=== PATIENT | female | born 1950 | race African-American/Black ===

== ENCOUNTER 2019-02-22 17:59 | Emergency (ER) | payer OTHER ==
[~2019-02-22] VITALS: Ht 162.6 cm; Wt 63.5 kg
[2019-02-22] MEDS ORDERED: LIPITOR40 MG PO (19:24)
[2019-02-22] MEDS ORDERED: LISINOPRIL-HCT1 EAC2 PO (19:25)
[2019-02-22 19:51] LABS: ABSOLUTE NEUTROPHILS 7.9 thou/uL (1.4-8.2); BASOPHILS 0.3 % (0.0-2.0); EOSINOPHILS 0.6 % (0.0-3.0); HEMATOCRIT 32.3 % (37.0-47.0); HEMOGLOBIN 10.5 gm/dL (12.0-15.0); LYMPHOCYTES 10.7 % (24.0-44.0); MCH 29.2 pg (26.0-34.0); MCHC 32.6 g/dL (28.0-37.0); MCV 89.4 fL (80.0-100.0); MONOCYTES 4.5 % (1.0-8.0); PLATELET COUNT 259 thou/uL (150-400); POLYS 83.9 % (36.0-66.0); RBC 3.62 mil/uL (4.20-5.00); RDW 15.7 % (10.5-14.5); WBC 9.5 thou/uL (4.0-11.0)
[2019-02-22 20:27] LABS: ANION GAP 14 mmol/L (7-16); BUN 29 mg/dL (7-18); CALCIUM 9.5 mg/dL (8.5-10.1); CHLORIDE 107 mmol/L (98-107); CO2 20 mmol/L (21-32); CREATININE 1.2 mg/dL (0.6-1.0); GLUCOSE 88 mg/dL (74-106); POTASSIUM 3.8 mmol/L (3.5-5.1); SODIUM 141 mmol/L (136-145)
[2019-02-22 20:36] LABS: MAGNESIUM 1.9 mg/dL (1.8-2.4); TROPONIN-I <0.06 ng/mL (<0.06)
[2019-02-22 21:20] VITALS: BP 146/51
--- NOTE | 2019-02-24 09:08 | EKG ---
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1950 Requested By: Bethel Barnes Order Number: [id number] MD: Tito Barrera Measurements Intervals [place] Rate: 63 P: 0 [place]: 195 QRS: -6 QRSD: 120 T: 59 QT: 427 QTc: 438 Interpretive Statements Sinus rhythm Nonspecific intraventricular conduction delay Anterior infarct, old No previous ECG available for comparison Electronically Signed On 02-24-2019 9:07:53 CDT by Tito Barrera [email or web address] ��������������������������������������������� <ELECTRONICALLY SIGNED> ���������������������������������������� By: Tito Barrrea MD ��������������������������������������������� 02/24/19 09 1806 1806 Tito Barrera MD /DARRIN
== END 2019-02-22 21:25 | disposition home or self-care (01) ==
LOC: ER 17:59
PROVIDERS: Emergency Medicine
DX: R53.1 Weakness (principal); R55 Syncope and collapse; F17.210 Nicotine dependence, cigarettes, uncomplicated; H54.3 Unqualified visual loss, both eyes; Z86.73 Personal history of transient ischemic attack (TIA), and cerebral infarction without residual deficits

== ENCOUNTER 2020-11-13 15:55 | Emergency (ER) | payer OTHER ==
[~2020-11-13] VITALS: Ht 162.6 cm; Wt 64.0 kg
[~2020-11-13 15:55] MED LIST: LIPITOR40 MG PO; LISINOPRIL-HCT1 EAC2 PO
[2020-11-13 16:21] LABS: ABSOLUTE NEUTROPHILS 5.6 thou/uL (1.4-8.2); BASOPHILS 0.6 % (0.0-2.0); EOSINOPHILS 5.1 % (0.0-3.0); HEMATOCRIT 33.4 % (37.0-47.0); HEMOGLOBIN 10.7 gm/dL (12.0-15.0); MCH 28.5 pg (26.0-34.0); MCHC 32.1 g/dL (28.0-37.0); MCV 88.8 fL (80.0-100.0); MONOCYTES 7.1 % (1.0-8.0); PLATELET COUNT 244 thou/uL (150-400); POLYS 64.2 % (36.0-66.0); RBC 3.76 mil/uL (4.20-5.00); RDW 14.6 % (10.5-14.5); WBC 8.8 thou/uL (4.0-11.0)
[2020-11-13 16:27] LABS: ANION GAP 12 mmol/L (7-16); BUN 41 mg/dL (7-18); CALCIUM 9.1 mg/dL (8.5-10.1); CHLORIDE 108 mmol/L (98-107); CO2 23 mmol/L (21-32); CREATININE 1.5 mg/dL (0.6-1.0); GLUCOSE 112 mg/dL (74-106); POTASSIUM 4.1 mmol/L (3.5-5.1); SODIUM 143 mmol/L (136-145)
[2020-11-13 16:37] LABS: ALBUMIN 3.3 g/dL (3.4-5.0); SGOT 17 U/L (15-37); SGPT 28 U/L (14-59); TOTAL BILIRUBIN 0.3 mg/dL (0.2-1.0); TOTAL PROTEIN 7.3 g/dL (6.4-8.2); TROPONIN-I <0.06 ng/mL (<0.06)
[2020-11-13 18:05] LABS: URINE BILIRUBIN NEGATIVE (Negative); URINE BLOOD TRACE (Negative); URINE CLARITY SL CLOUDY; URINE COLOR YELLOW; URINE GLUCOSE-RANDOM* NEGATIVE (Negative); URINE KETONES NEGATIVE (Negative); URINE PROTEIN (DIPSTICK) NEGATIVE (Negative); URINE SPECIFIC GRAVITY 1.025 (1.005-1.035); URINE UROBILINOGEN 0.2 E.U./dl (0.2-1.0)
[2020-11-13 18:24] LABS: URINE LEUKOCYTES-REFLEX 1+ (Negative); URINE NITRITE-REFLEX POSITIVE (Negative)
[2020-11-13] MEDS ORDERED: CEPHALEXIN500 MG PO ×2 (18:26)
[2020-11-13 18:34] LABS: SQUAMOUS >10 Many /LPF (0-3)
[2020-11-13 18:35] LABS: BACTERIA-REFLEX >30 Many /HPF (None Seen); CASTS None Seen /LPF (None Seen); CRYSTALS None Seen /LPF (None Seen); URINE RBC 1-2 Rare /HPF (NONE SEEN); URINE WBC-REFLEX 6-15 Few /HPF (0-5)
[2020-11-13 19:39] VITALS: BP 145/55
--- NOTE | 2020-11-14 07:06 | EKG ---
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 : 1950 Requested By: Marcia Cantu Order Number: [id number] MD: Howard Benz Measurements Intervals [place] Rate: 60 P: -24 PA: 183 QRS: 9 QRSD: 94 T: 58 QT: 398 QTc: 398 Interpretive Statements Sinus rhythm Low voltage, precordial leads Anteroseptal infarct, old Compared to ECG 02/22/2019 18:06:25 Low QRS voltage now present Intraventricular conduction delay no longer present Myocardial infarct finding still present Electronically Signed On 11-14-2020 7:06:00 CDT by Howard Benz [email or web address] <ELECTRONICALLY SIGNED> By: Howard Benz MD, [facility] 11/14/20 0706 15 15 Howard Benz MD, [facility] /EPI
== END 2020-11-13 19:51 | disposition home or self-care (01) ==
LOC: ER 15:55
PROVIDERS: Physician Assistant
DX: E86.0 Dehydration (principal); N39.0 Urinary tract infection, site not specified; R42 Dizziness and giddiness; F17.210 Nicotine dependence, cigarettes, uncomplicated; Z79.899 Other long term (current) drug therapy

== ENCOUNTER 2020-12-04 22:47 | Emergency (ER) | payer OTHER ==
[~2020-12-04] VITALS: Ht 162.6 cm; Wt 65.8 kg
[~2020-12-04 22:47] MED LIST changes: +CEPHALEXIN500 MG PO
[2020-12-04 23:16] LABS: ABSOLUTE NEUTROPHILS 6.1 thou/uL (1.4-8.2); BASOPHILS 0.7 % (0.0-2.0); EOSINOPHILS 4.1 % (0.0-3.0); HEMATOCRIT 33.5 % (37.0-47.0); HEMOGLOBIN 10.7 gm/dL (12.0-15.0); LYMPHOCYTES 22.4 % (24.0-44.0); MCH 28.6 pg (26.0-34.0); MCHC 31.9 g/dL (28.0-37.0); MCV 89.6 fL (80.0-100.0); MONOCYTES 6.1 % (1.0-8.0); PLATELET COUNT 265 thou/uL (150-400); POLYS 66.7 % (36.0-66.0); RBC 3.74 mil/uL (4.20-5.00); RDW 15.2 % (10.5-14.5); WBC 9.1 thou/uL (4.0-11.0)
[2020-12-04 23:22] LABS: ANION GAP 11 mmol/L (7-16); BUN 43 mg/dL (7-18); CALCIUM 9.1 mg/dL (8.5-10.1); CHLORIDE 106 mmol/L (98-107); CO2 23 mmol/L (21-32); CREATININE 1.7 mg/dL (0.6-1.0); GLUCOSE 162 mg/dL (74-106); POTASSIUM 4.1 mmol/L (3.5-5.1); SODIUM 140 mmol/L (136-145)
[2020-12-04 23:32] LABS: ALBUMIN 3.3 g/dL (3.4-5.0); SGOT 16 U/L (15-37); SGPT 27 U/L (14-59); TOTAL BILIRUBIN 0.4 mg/dL (0.2-1.0); TOTAL PROTEIN 7.5 g/dL (6.4-8.2); TROPONIN-I <0.06 ng/mL (<0.06)
[2020-12-05 02:46] VITALS: BP 121/74
--- NOTE | 2020-12-05 07:24 | EKG ---
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
== END 2020-12-05 02:48 | disposition home or self-care (01) ==
LOC: ER 22:47
PROVIDERS: Emergency Medicine
DX: S90.812A Abrasion, left foot, initial encounter (principal); R55 Syncope and collapse; F17.210 Nicotine dependence, cigarettes, uncomplicated; I10 Essential (primary) hypertension; E78.00 Pure hypercholesterolemia, unspecified; Z79.899 Other long term (current) drug therapy; W18.30XA Fall on same level, unspecified, initial encounter; Y93.01 Activity, walking, marching and hiking; Y92.091 Bathroom in other non-institutional residence as the place of occurrence of the external cause; Y99.9 Unspecified external cause status

== ENCOUNTER 2021-02-03 15:15 | Emergency (ER) | payer OTHER ==
[~2021-02-03] VITALS: Ht 162.6 cm; Wt 65.8 kg
[2021-02-03 15:39] LABS: ABSOLUTE NEUTROPHILS 6.6 thou/uL (1.4-8.2); BASOPHILS 0.4 % (0.0-2.0); EOSINOPHILS 1.3 % (0.0-3.0); HEMATOCRIT 33.5 % (37.0-47.0); HEMOGLOBIN 10.9 gm/dL (12.0-15.0); LYMPHOCYTES 17.8 % (24.0-44.0); MCHC 32.4 g/dL (28.0-37.0); MCV 89.2 fL (80.0-100.0); MONOCYTES 5.5 % (1.0-8.0); PLATELET COUNT 248 thou/uL (150-400); RBC 3.76 mil/uL (4.20-5.00); RDW 15.1 % (10.5-14.5); WBC 8.8 thou/uL (4.0-11.0)
[2021-02-03 15:50] LABS: CALCIUM 9.2 mg/dL (8.5-10.1); CREATININE 1.4 mg/dL (0.6-1.0); POTASSIUM 3.3 mmol/L (3.5-5.1)
[2021-02-03 15:53] LABS: ALBUMIN 3.5 g/dL (3.4-5.0); TOTAL BILIRUBIN 0.3 mg/dL (0.2-1.0); TOTAL PROTEIN 7.7 g/dL (6.4-8.2)
[2021-02-03 19:11] VITALS: BP 166/66
== END 2021-02-03 19:12 | disposition home or self-care (01) ==
LOC: ER 15:15
PROVIDERS: Emergency Medicine
DX: R19.7 Diarrhea, unspecified (principal); I10 Essential (primary) hypertension; E78.00 Pure hypercholesterolemia, unspecified; F17.210 Nicotine dependence, cigarettes, uncomplicated; Z79.899 Other long term (current) drug therapy

== ENCOUNTER 2021-03-19 12:54 | Emergency (ER) | payer OTHER ==
[~2021-03-19] VITALS: Ht 162.6 cm; Wt 65.8 kg
[2021-03-19 13:12] LABS: ABSOLUTE NEUTROPHILS 5.7 thou/uL (1.4-8.2); BASOPHILS 0.8 % (0.0-2.0); EOSINOPHILS 1.2 % (0.0-3.0); HEMATOCRIT 33.1 % (37.0-47.0); LYMPHOCYTES 21.3 % (24.0-44.0); MCH 29.6 pg (26.0-34.0); MCHC 33.4 g/dL (28.0-37.0); MCV 88.6 fL (80.0-100.0); MONOCYTES 6.2 % (1.0-8.0); PLATELET COUNT 262 thou/uL (150-400); POLYS 70.5 % (36.0-66.0); RBC 3.74 mil/uL (4.20-5.00); RDW 14.9 % (10.5-14.5); WBC 8.1 thou/uL (4.0-11.0)
[2021-03-19 13:35] LABS: CALCIUM 9.3 mg/dL (8.5-10.1); CREATININE 1.6 mg/dL (0.6-1.0); POTASSIUM 3.9 mmol/L (3.5-5.1)
[2021-03-19 13:39] LABS: ALBUMIN 3.6 g/dL (3.4-5.0); DIRECT BILIRUBIN 0.1 mg/dL (<0.1-0.2); TOTAL BILIRUBIN 0.3 mg/dL (0.2-1.0); TOTAL PROTEIN 7.8 g/dL (6.4-8.2)
[2021-03-19 15:05] LABS: URINE BILIRUBIN NEGATIVE (Negative); URINE BLOOD NEGATIVE (Negative); URINE CLARITY HAZY; URINE COLOR YELLOW; URINE GLUCOSE-RANDOM* NEGATIVE (Negative); URINE KETONES NEGATIVE (Negative); URINE LEUKOCYTES-REFLEX 2+ (Negative); URINE NITRITE-REFLEX POSITIVE (Negative); URINE PROTEIN (DIPSTICK) NEGATIVE (Negative); URINE UROBILINOGEN 0.2 E.U./dl (0.2-1.0)
[2021-03-19] MEDS ORDERED: CEPHALEXIN500 MG PO (15:13)
[2021-03-19 15:16] LABS: CASTS None Seen /LPF (None Seen); SQUAMOUS >10 Many /LPF (0-3)
[2021-03-19 15:17] LABS: CRYSTALS None Seen /LPF (None Seen); URINE RBC None Seen /HPF (NONE SEEN); URINE WBC-REFLEX 6-15 Few /HPF (0-5)
[2021-03-19 16:20] VITALS: BP 151/64
--- NOTE | 2021-03-20 16:28 | EKG ---
[place] [address] [place] [address] ELECTROCARDIOGRAM REPORT Name: JEZ GUILLEN Room #: DEP [facility]ioneAntione[facility] [id number] Admission: 03/19/21 Attend Phys: Discharge: 03/19/21 Date of : 50 Report #: [id number] 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 : 1950 Requested By: Brenden Glaser Order Number: [id number] MD: Howard Benz Measurements Intervals [place] Rate: 65 P: -4 [place]: 174 QRS: -6 QRSD: 109 T: 36 QT: 420 QTc: 437 Interpretive Statements Sinus rhythm Low voltage, precordial leads Anteroseptal infarct, old Compared to ECG 12/04/2020 23:15:48 Low QRS voltage now present Myocardial infarct finding still present Electronically Signed On 03-20-2021 16:28:10 CDT by Howard Benz [email or web address] <ELECTRONICALLY SIGNED> By: Howard Benz MD, [facility] 03/20/21 1628 1321 1321 Howard Benz MD, FACC /EPI
== END 2021-03-19 16:30 | disposition home or self-care (01) ==
LOC: ER 12:54
PROVIDERS: Nurse Practitioner
DX: N39.0 Urinary tract infection, site not specified (principal); I10 Essential (primary) hypertension; Z79.899 Other long term (current) drug therapy

== ENCOUNTER 2021-08-04 15:43 | Emergency (ER) | payer OTHER ==
[~2021-08-04] VITALS: Ht 162.6 cm; Wt 52.2 kg
[2021-08-04 16:09] LABS: ABSOLUTE NEUTROPHILS 6.7 thou/uL (1.4-8.2); BASOPHILS 0.4 % (0.0-2.0); EOSINOPHILS 0.8 % (0.0-3.0); HEMATOCRIT 37.4 % (37.0-47.0); HEMOGLOBIN 11.6 gm/dL (12.0-15.0); LYMPHOCYTES 13.8 % (24.0-44.0); MCH 28.7 pg (26.0-34.0); MCHC 31.2 g/dL (28.0-37.0); MCV 92.2 fL (80.0-100.0); PLATELET COUNT 238 thou/uL (150-400); RBC 4.06 mil/uL (4.20-5.00); RDW 16.6 % (10.5-14.5); WBC 8.4 thou/uL (4.0-11.0)
[2021-08-04 16:19] LABS: CALCIUM 7.1 mg/dL (8.5-10.1); CREATININE 1.1 mg/dL (0.6-1.0); POTASSIUM 3.1 mmol/L (3.5-5.1)
[2021-08-04 16:32] LABS: ALBUMIN 2.6 g/dL (3.4-5.0); TOTAL BILIRUBIN 0.2 mg/dL (0.2-1.0); TOTAL PROTEIN 5.1 g/dL (6.4-8.2)
[2021-08-04 17:19] LABS: URINE BILIRUBIN NEGATIVE (Negative); URINE BLOOD NEGATIVE (Negative); URINE CLARITY CLEAR; URINE COLOR YELLOW; URINE GLUCOSE-RANDOM* NEGATIVE (Negative); URINE KETONES NEGATIVE (Negative); URINE LEUKOCYTES-REFLEX NEGATIVE (Negative); URINE NITRITE-REFLEX NEGATIVE (Negative); URINE PROTEIN (DIPSTICK) NEGATIVE (Negative); URINE UROBILINOGEN 0.2 E.U./dl (0.2-1.0)
[2021-08-04 20:41] VITALS: BP 154/48
--- NOTE | 2021-08-05 11:19 | EKG ---
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 08/05/21 1119 1548 1548 Aly Pardo MD, FACC /EPI
== END 2021-08-04 20:44 | disposition home or self-care (01) ==
LOC: ER 15:43
PROVIDERS: Emergency Medicine
DX: R53.1 Weakness (principal); Z20.822 Contact with and (suspected) exposure to COVID-19; E87.6 Hypokalemia; R41.0 Disorientation, unspecified; I10 Essential (primary) hypertension; E78.5 Hyperlipidemia, unspecified; E78.00 Pure hypercholesterolemia, unspecified; F17.210 Nicotine dependence, cigarettes, uncomplicated; Z79.899 Other long term (current) drug therapy